=== PATIENT | male | born 1945 | race Caucasian/White ===

== ENCOUNTER 2018-02-17 09:17 | Inpatient (IN) | payer MEDICARE ==
[~2018-02-17] VITALS: Ht 165.1 cm; Wt 75.9 kg
[2018-02-17 09:52] LABS: BASOPHILS % 0.8 % (0.0-2.0); HEMOGLOBIN. 13.4 g/dL (14.0-18.0); LYMPHOCYTES % 23.8 % (20.0-50.0); MEAN CORPUSCULAR HEMOGLOBIN 30.1 pg (28.0-32.0); MEAN CORPUSCULAR VOLUME 85.6 fL (80.0-94.0); MEAN PLATELET VOLUME 7.5 fl (7.4-10.4); MONOCYTES % 5.3 % (2.0-8.0); NEUTROPHILS % 67.1 % (40.0-76.0); PLATELET 208 x1000/uL (130-400); RED BLOOD CELL COUNT 4.44 mill/uL (4.7-6.1); RED CELL DISTRIBUTION WIDTH 13.7 % (11.6-14.6)
[2018-02-17 09:58] LABS: INR 1.1; PROTHROMBIN TIME 11.2 sec (9.4-11.6)
[2018-02-17 10:01] LABS: CHLORIDE 105 mEq/L (98-107); ETHANOL BLOOD < 10 mg/dL
[2018-02-17] MEDS ORDERED: IOHEXOL-350 100 ML BOTTLE ONE (10:47)
[2018-02-17] MEDS ORDERED: ASPIRIN 325MG TABLET PO ONE (11:15)
[2018-02-17 11:32] LABS: CLARITY URINE CLEAR (CLEAR); COLOR URINE YELLOW (YELLOW); KETONES URINE NEGATIVE (NEGATIVE); LEUKOCYTE ESTERASE URINE NEGATIVE (NEGATIVE); NITRITE URINE NEGATIVE (NEGATIVE); OCCULT BLOOD URINE NEGATIVE (NEGATIVE); PROTEIN URINE NEGATIVE (NEGATIVE); SPECIFIC GRAVITY URINE 1.043 (1.005-1.030); UROBILINOGEN URINE 0.2 E.U./dL (0.2-1.0)
[2018-02-17 12:13] LABS: *AMPHETAMINES SCREEN URINE NEGATIVE (NEGATIVE); *BARBITURATES SCREEN URINE NEGATIVE (NEGATIVE); *BENZODIAZEPINES SCREEN URINE NEGATIVE (NEGATIVE); *COCAINE SCREEN URINE NEGATIVE (NEGATIVE); CANNABINOID URINE SCREEN NEGATIVE (NEGATIVE); METHADONE URINE SCREEN NEGATIVE (NEGATIVE); OPIATES URINE SCREEN NEGATIVE (NEGATIVE); PHENCYCLIDINE URINE SCREEN NEGATIVE (NEGATIVE)
[2018-02-17] MEDS: CLONIDINE 0.1MG TABLET PO PRN (16:43)
[2018-02-17 19:36] LABS: FOLIC ACID (FOLATE) SERUM 11.2 ng/mL (>5.38)
[2018-02-17] MEDS ORDERED: HYDROCODONE/ACETAMINOPHEN 5/325MG TABLET PO PRN (19:45)
[2018-02-17] MEDS ORDERED: NA PHOS,M-B/NA PHOS,DI-BA ENEMA 118ML PR PRN (20:00)
[2018-02-17] MEDS ORDERED: ACETAMINOPHEN 325MG TABLET PO PRN (20:00)
[2018-02-17] MEDS ORDERED: GUAIFENESIN 200MG/10ML SUGAR FREE UDC PO PRN (20:00)
[2018-02-17] MEDS ORDERED: LORAZEPAM 0.5MG TABLET PO PRN (20:00)
[2018-02-17] MEDS ORDERED: MAGNESIUM/ALUMINUM HYDROXIDE/SIMETHICONE 30ML UDC PO PRN (20:00)
[2018-02-17] MEDS ORDERED: HYDROCODONE/ACETAMINOPHEN 10/325MG TABLET PO PRN (20:00)
[2018-02-17] MEDS ORDERED: ACETAMINOPHEN 650MG/20.3ML UDC GT PRN (20:00)
[2018-02-17 20:27] VITALS: BP 142/52
[2018-02-17 20:28] VITALS: BP 142/52
[2018-02-17] MEDS ORDERED: DIPHENHYDRAMINE 50MG/ML VIAL IV PRN (20:30)
[2018-02-17] MEDS ORDERED: ACETAMINOPHEN 650MG SUPP PR PRN (20:30)
[2018-02-17 20:39] LABS: T4 FREE 1.12 ng/dL (0.76-1.46)
[2018-02-18] VITALS (7 sets, daily range): BP systolic 133–191; BP diastolic 46–91
[2018-02-18] MEDS: CLONIDINE 0.1MG TABLET PO PRN (04:15)
[2018-02-18] MEDS ORDERED: GLIP10TA10 PO (05:15)
[2018-02-18] MEDS ORDERED: ATOR20TA PO (05:15)
[2018-02-18] MEDS ORDERED: LOSA1TAB40 PO (05:15)
[2018-02-18] MEDS ORDERED: METF10002 PO (05:15)
[2018-02-18] MEDS ORDERED: FURO20TA4 PO (05:15)
[2018-02-18] MEDS ORDERED: GABA-531 PO (05:15)
[2018-02-18] MEDS ORDERED: ASPI-1159 PO (05:15)
[2018-02-18] MEDS ORDERED: SITA50TA3 PO (05:15)
[2018-02-18] MEDS ORDERED: AMLO10TA80 PO (05:15)
[2018-02-18 06:24] LABS: BASOPHILS % 0.9 % (0.0-2.0); EOSINOPHILS % 3.9 % (0.0-5.0); HEMATOCRIT. 35.6 % (42.0-52.0); HEMOGLOBIN. 12.3 g/dL (14.0-18.0); LYMPHOCYTES % 21.5 % (20.0-50.0); MEAN CORPUSCULAR HEMOGLOBIN 29.9 pg (28.0-32.0); MEAN CORPUSCULAR VOLUME 86.2 fL (80.0-94.0); MONOCYTES % 6.4 % (2.0-8.0); NEUTROPHILS % 67.3 % (40.0-76.0); PLATELET 181 x1000/uL (130-400); RED BLOOD CELL COUNT 4.13 mill/uL (4.7-6.1); RED CELL DISTRIBUTION WIDTH 13.6 % (11.6-14.6)
[2018-02-18 06:34] LABS: CHLORIDE 107 mEq/L (98-107)
[2018-02-18] MEDS ORDERED: METO-539 PO (06:45)
[2018-02-18] MEDS ORDERED: METOPROLOL TARTRATE 50MG TABLET PO SCH (12:00)
[2018-02-18] MEDS ORDERED: AMLODIPINE 10MG TABLET PO SCH (12:00)
[2018-02-18] MEDS: ATORVASTATIN CALCIUM 20MG TABLET PO SCH (14:18)
[2018-02-18] MEDS: ASPIRIN 81MG EC TABLET PO SCH (14:18)
[2018-02-18] MEDS: CLOPIDOGREL 75MG TABLET PO SCH (14:18)
[2018-02-18] MEDS: GABAPENTIN 300MG CAPSULE PO SCH (18:36)
[2018-02-18] MEDS: FUROSEMIDE 20MG TABLET PO SCH (18:38)
[2018-02-19] VITALS (14 sets, daily range): BP systolic 156–204; BP diastolic 69–95
[2018-02-19 07:28] LABS: INR 1.1; PROTHROMBIN TIME 11.4 sec (9.4-11.6)
[2018-02-19 07:30] LABS: HEMATOCRIT 38.1 % (42.0-52.0); HEMOGLOBIN 13.3 g/dL (14.0-18.0); MEAN CORPUSCULAR HEMOGLOBIN 29.6 pg (28.0-32.0); MEAN CORPUSCULAR VOLUME 84.6 fL (80.0-94.0); PLATELET 190 x1000/uL (130-400); RED BLOOD CELL COUNT 4.51 mill/uL (4.7-6.1); RED CELL DISTRIBUTION WIDTH 13.6 % (11.6-14.6)
[2018-02-19 08:03] LABS: CHLORIDE 106 mEq/L (98-107)
[2018-02-19 08:09] LABS: PHOSPHORUS 3.2 mg/dL (2.5-4.9)
[2018-02-19] MEDS: ATORVASTATIN CALCIUM 20MG TABLET PO SCH (09:45)
[2018-02-19] MEDS: FUROSEMIDE 20MG TABLET PO SCH (09:45)
[2018-02-19] MEDS: CLOPIDOGREL 75MG TABLET PO SCH (09:45)
[2018-02-19] MEDS: ASPIRIN 81MG EC TABLET PO SCH (09:45)
[2018-02-19] MEDS: GABAPENTIN 300MG CAPSULE PO SCH ×2 (09:45→17:29)
[2018-02-19] MEDS: GLIPIZIDE 10MG TABLET PO SCH (11:54)
[2018-02-20] VITALS (19 sets, daily range): BP systolic 171–212; BP diastolic 71–97
[2018-02-20 06:33] LABS: BASOPHILS % 0.6 % (0.0-2.0); HEMATOCRIT. 38.8 % (42.0-52.0); HEMOGLOBIN. 13.3 g/dL (14.0-18.0); LYMPHOCYTES % 20.2 % (20.0-50.0); MEAN CORPUSCULAR HEMOGLOBIN 29.4 pg (28.0-32.0); MEAN CORPUSCULAR VOLUME 85.6 fL (80.0-94.0); MEAN PLATELET VOLUME 7.8 fl (7.4-10.4); MONOCYTES % 7.1 % (2.0-8.0); NEUTROPHILS % 67.1 % (40.0-76.0); PLATELET 181 x1000/uL (130-400); RED BLOOD CELL COUNT 4.54 mill/uL (4.7-6.1); RED CELL DISTRIBUTION WIDTH 13.6 % (11.6-14.6)
[2018-02-20] MEDS ORDERED: LABETALOL HCL 20MG/4ML CARPUJECT IV PRN (08:15)
[2018-02-20] MEDS ORDERED: AMLODIPINE 5MG TABLET PO SCH (09:30)
[2018-02-20] MEDS: ASPIRIN 81MG EC TABLET PO SCH (10:33)
[2018-02-20] MEDS: GLIPIZIDE 10MG TABLET PO SCH (10:34)
[2018-02-20] MEDS: CLOPIDOGREL 75MG TABLET PO SCH (10:34)
[2018-02-20] MEDS: GABAPENTIN 300MG CAPSULE PO SCH ×2 (10:34→17:42)
[2018-02-20] MEDS: ATORVASTATIN CALCIUM 40MG TABLET PO SCH (10:34)
[2018-02-21] VITALS (27 sets, daily range): BP systolic 155–209; BP diastolic 66–99
[2018-02-21 06:48] LABS: BASOPHILS % 0.6 % (0.0-2.0); EOSINOPHILS % 5.4 % (0.0-5.0); HEMATOCRIT. 39.7 % (42.0-52.0); HEMOGLOBIN. 13.7 g/dL (14.0-18.0); LYMPHOCYTES % 18.6 % (20.0-50.0); MEAN CORPUSCULAR HEMOGLOBIN 29.6 pg (28.0-32.0); MEAN CORPUSCULAR VOLUME 85.6 fL (80.0-94.0); MEAN PLATELET VOLUME 7.7 fl (7.4-10.4); MONOCYTES % 6.6 % (2.0-8.0); NEUTROPHILS % 68.8 % (40.0-76.0); PLATELET 187 x1000/uL (130-400); RED BLOOD CELL COUNT 4.64 mill/uL (4.7-6.1); RED CELL DISTRIBUTION WIDTH 13.4 % (11.6-14.6)
[2018-02-21 07:14] LABS: PHOSPHORUS 2.9 mg/dL (2.5-4.9)
[2018-02-21] MEDS ORDERED: LOSARTAN POTASSIUM 25 MG TABLET PO SCH (09:00)
[2018-02-21] MEDS: AMLODIPINE 10MG TABLET PO SCH (09:11)
[2018-02-21] MEDS ORDERED: TETRACAINE/BENZOCAINE/BUTAMBEN 20 GM SPRAY MM ONE (12:45)
[2018-02-21] MEDS ORDERED: MIDAZOLAM HCL 5 MG/5 ML VIAL ONE (12:45)
[2018-02-21] MEDS ORDERED: FENTANYL CITRATE/PF 50MCG/ML 2ML VIAL ONE (12:46)
[2018-02-21] MEDS ORDERED: LIDOCAINE HCL 2% JELLY 5ML ONE (12:49)
[2018-02-21] MEDS: ATORVASTATIN CALCIUM 40MG TABLET PO SCH (14:45)
[2018-02-21] MEDS: GLIPIZIDE 10MG TABLET PO SCH (14:45)
[2018-02-21] MEDS: CLOPIDOGREL 75MG TABLET PO SCH (14:45)
[2018-02-21] MEDS: DOCUSATE SODIUM 100MG CAPSULE PO PRN (14:45)
[2018-02-21] MEDS: GABAPENTIN 300MG CAPSULE PO SCH ×2 (14:45→17:00)
[2018-02-21] MEDS: ASPIRIN 81MG EC TABLET PO SCH (14:45)
[2018-02-21] MEDS: LOSARTAN POTASSIUM 25 MG TABLET PO SCH ×2 (14:45→21:06)
[2018-02-22] VITALS (14 sets, daily range): BP systolic 158–197; BP diastolic 60–118
[2018-02-22 06:15] LABS: BASOPHILS % 0.6 % (0.0-2.0); EOSINOPHILS % 6.7 % (0.0-5.0); HEMATOCRIT. 37.9 % (42.0-52.0); HEMOGLOBIN. 13.3 g/dL (14.0-18.0); LYMPHOCYTES % 17.6 % (20.0-50.0); MEAN CORPUSCULAR HEMOGLOBIN 29.9 pg (28.0-32.0); MEAN CORPUSCULAR VOLUME 85.1 fL (80.0-94.0); MEAN PLATELET VOLUME 7.8 fl (7.4-10.4); MONOCYTES % 6.7 % (2.0-8.0); NEUTROPHILS % 68.4 % (40.0-76.0); PLATELET 187 x1000/uL (130-400); RED BLOOD CELL COUNT 4.45 mill/uL (4.7-6.1); RED CELL DISTRIBUTION WIDTH 13.7 % (11.6-14.6)
[2018-02-22 07:16] LABS: PHOSPHORUS 3.5 mg/dL (2.5-4.9)
[2018-02-22] MEDS: ATORVASTATIN CALCIUM 40MG TABLET PO SCH (08:57)
[2018-02-22] MEDS: GLIPIZIDE 10MG TABLET PO SCH (08:59)
[2018-02-22] MEDS: GABAPENTIN 300MG CAPSULE PO SCH ×2 (08:59→16:47)
[2018-02-22] MEDS: ASPIRIN 81MG EC TABLET PO SCH (08:59)
[2018-02-22] MEDS: AMLODIPINE 10MG TABLET PO SCH (08:59)
[2018-02-22] MEDS: CLOPIDOGREL 75MG TABLET PO SCH (09:02)
[2018-02-22] MEDS: LOSARTAN POTASSIUM 25 MG TABLET PO SCH (09:25)
[2018-02-22] MEDS: NIFEDIPINE XL 60MG TAB PO SCH (20:49)
[2018-02-22] MEDS: LOSARTAN POTASSIUM 50 MG TABLET PO SCH (21:08)
[2018-02-23] VITALS (11 sets, daily range): BP systolic 126–179; BP diastolic 53–113
[2018-02-23 05:49] LABS: BASOPHILS % 0.7 % (0.0-2.0); EOSINOPHILS % 7.2 % (0.0-5.0); HEMATOCRIT. 38.1 % (42.0-52.0); HEMOGLOBIN. 13.2 g/dL (14.0-18.0); LYMPHOCYTES % 17.3 % (20.0-50.0); MEAN CORPUSCULAR HEMOGLOBIN 29.5 pg (28.0-32.0); MEAN CORPUSCULAR VOLUME 85.5 fL (80.0-94.0); MEAN PLATELET VOLUME 7.9 fl (7.4-10.4); MONOCYTES % 6.6 % (2.0-8.0); NEUTROPHILS % 68.2 % (40.0-76.0); PLATELET 188 x1000/uL (130-400); RED BLOOD CELL COUNT 4.45 mill/uL (4.7-6.1); RED CELL DISTRIBUTION WIDTH 13.8 % (11.6-14.6)
[2018-02-23] MEDS: GABAPENTIN 300MG CAPSULE PO SCH ×2 (08:38→16:53)
[2018-02-23] MEDS: ATORVASTATIN CALCIUM 40MG TABLET PO SCH (08:39)
[2018-02-23] MEDS: NIFEDIPINE XL 60MG TAB PO SCH ×2 (08:39→20:09)
[2018-02-23] MEDS: LOSARTAN POTASSIUM 50 MG TABLET PO SCH ×2 (08:39→20:10)
[2018-02-23] MEDS: CLOPIDOGREL 75MG TABLET PO SCH (08:39)
[2018-02-23] MEDS: GLIPIZIDE 10MG TABLET PO SCH (08:39)
[2018-02-23] MEDS: ASPIRIN 81MG EC TABLET PO SCH (08:39)
[2018-02-23] MEDS ORDERED: HYDRALAZINE HCL 25MG TABLET PO SCH (10:15)
[2018-02-23] MEDS: HYDRALAZINE HCL 25MG TABLET PO SCH (20:09)
[2018-02-24] VITALS (11 sets, daily range): BP systolic 105–149; BP diastolic 41–90
[2018-02-24 06:50] LABS: BASOPHILS % 0.7 % (0.0-2.0); EOSINOPHILS % 6.8 % (0.0-5.0); HEMATOCRIT. 37.6 % (42.0-52.0); HEMOGLOBIN. 13.3 g/dL (14.0-18.0); LYMPHOCYTES % 20.1 % (20.0-50.0); MEAN CORPUSCULAR HEMOGLOBIN 30.3 pg (28.0-32.0); MEAN CORPUSCULAR VOLUME 85.8 fL (80.0-94.0); MEAN PLATELET VOLUME 7.9 fl (7.4-10.4); MONOCYTES % 6.5 % (2.0-8.0); NEUTROPHILS % 65.9 % (40.0-76.0); PLATELET 185 x1000/uL (130-400); RED BLOOD CELL COUNT 4.38 mill/uL (4.7-6.1); RED CELL DISTRIBUTION WIDTH 14.1 % (11.6-14.6)
[2018-02-24] MEDS: ATORVASTATIN CALCIUM 40MG TABLET PO SCH (08:18)
[2018-02-24] MEDS: NIFEDIPINE XL 60MG TAB PO SCH ×2 (08:19→20:04)
[2018-02-24] MEDS: LOSARTAN POTASSIUM 50 MG TABLET PO SCH ×2 (08:19→20:04)
[2018-02-24] MEDS: GABAPENTIN 300MG CAPSULE PO SCH ×2 (08:19→16:55)
[2018-02-24] MEDS: ASPIRIN 81MG EC TABLET PO SCH (08:19)
[2018-02-24] MEDS: GLIPIZIDE 10MG TABLET PO SCH (08:19)
[2018-02-24] MEDS: CLOPIDOGREL 75MG TABLET PO SCH (08:19)
[2018-02-24 08:25] LABS: PHOSPHORUS 4.1 mg/dL (2.5-4.9)
[2018-02-24] MEDS: HYDRALAZINE HCL 25MG TABLET PO SCH ×2 (08:26→20:05)
[2018-02-25] VITALS (7 sets, daily range): BP systolic 111–148; BP diastolic 52–83
[2018-02-25 07:15] LABS: BASOPHILS % 0.5 % (0.0-2.0); EOSINOPHILS % 4.7 % (0.0-5.0); HEMATOCRIT. 36.1 % (42.0-52.0); HEMOGLOBIN. 12.6 g/dL (14.0-18.0); LYMPHOCYTES % 14.4 % (20.0-50.0); MEAN CORPUSCULAR HEMOGLOBIN 29.6 pg (28.0-32.0); MEAN CORPUSCULAR VOLUME 84.8 fL (80.0-94.0); MEAN PLATELET VOLUME 8.1 fl (7.4-10.4); MONOCYTES % 6.1 % (2.0-8.0); NEUTROPHILS % 74.3 % (40.0-76.0); PLATELET 186 x1000/uL (130-400); RED BLOOD CELL COUNT 4.25 mill/uL (4.7-6.1); RED CELL DISTRIBUTION WIDTH 13.6 % (11.6-14.6)
[2018-02-25 07:31] LABS: PHOSPHORUS 5.1 mg/dL (2.5-4.9)
[2018-02-25] MEDS: ATORVASTATIN CALCIUM 40MG TABLET PO SCH (08:25)
[2018-02-25] MEDS: LOSARTAN POTASSIUM 50 MG TABLET PO SCH ×2 (08:26→21:03)
[2018-02-25] MEDS: HYDRALAZINE HCL 25MG TABLET PO SCH (08:26)
[2018-02-25] MEDS: ASPIRIN 81MG EC TABLET PO SCH (08:27)
[2018-02-25] MEDS: NIFEDIPINE XL 60MG TAB PO SCH ×2 (08:27→21:03)
[2018-02-25] MEDS: CLOPIDOGREL 75MG TABLET PO SCH (08:28)
[2018-02-25] MEDS: GLIPIZIDE 10MG TABLET PO SCH (08:29)
[2018-02-25] MEDS: GABAPENTIN 300MG CAPSULE PO SCH ×2 (08:29→16:19)
[2018-02-25] MEDS: SODIUM CHLORIDE 0.9% 1,000 ML IV SCH (16:19)
[2018-02-25] MEDS: DOCUSATE SODIUM 100MG CAPSULE PO PRN (16:19)
[2018-02-26] VITALS (12 sets, daily range): BP systolic 112–162; BP diastolic 61–87
[2018-02-26] MEDS: SODIUM CHLORIDE 0.9% 1,000 ML IV SCH ×2 (00:03→08:48)
[2018-02-26 06:10] LABS: BASOPHILS % 0.8 % (0.0-2.0); EOSINOPHILS % 7.6 % (0.0-5.0); HEMATOCRIT. 35.2 % (42.0-52.0); HEMOGLOBIN. 12.4 g/dL (14.0-18.0); LYMPHOCYTES % 25.8 % (20.0-50.0); MEAN CORPUSCULAR HEMOGLOBIN 30.1 pg (28.0-32.0); MEAN CORPUSCULAR VOLUME 85.2 fL (80.0-94.0); MONOCYTES % 7.5 % (2.0-8.0); NEUTROPHILS % 58.3 % (40.0-76.0); PLATELET 172 x1000/uL (130-400); RED BLOOD CELL COUNT 4.13 mill/uL (4.7-6.1); RED CELL DISTRIBUTION WIDTH 13.5 % (11.6-14.6)
[2018-02-26 06:55] LABS: PHOSPHORUS 4.8 mg/dL (2.5-4.9)
[2018-02-26] MEDS: CLOPIDOGREL 75MG TABLET PO SCH (08:47)
[2018-02-26] MEDS: LOSARTAN POTASSIUM 50 MG TABLET PO SCH (08:47)
[2018-02-26] MEDS: ASPIRIN 81MG EC TABLET PO SCH (08:47)
[2018-02-26] MEDS: GABAPENTIN 300MG CAPSULE PO SCH ×2 (08:47→17:22)
[2018-02-26] MEDS: GLIPIZIDE 10MG TABLET PO SCH (08:47)
[2018-02-26] MEDS: ATORVASTATIN CALCIUM 40MG TABLET PO SCH (08:47)
[2018-02-26] MEDS: NIFEDIPINE XL 60MG TAB PO SCH (08:47)
== END 2018-02-26 20:00 | DRG 64 ==
LOC: ER 09:17 → 6WST 09:44 → EDBEDREQSVC 12:04 → EDBEDREQ 12:04 → ENRESERV 14:17 → 6WST 17:37 → 5EST 02-18 23:06
PROVIDERS: ADMIT Internal Medicine; ATTEND Internal Medicine
PROC: 4A00X4Z Measurement of Central Nervous Electrical Activity, External Approach (ICD-10-PCS; principal; 2018-02-18)
DX: I63.9 Cerebral infarction, unspecified (principal); N17.0 Acute kidney failure with tubular necrosis; G92 Toxic encephalopathy; E44.0 Moderate protein-calorie malnutrition; R13.10 Dysphagia, unspecified; R41.4 Neurologic neglect syndrome; G81.94 Hemiplegia, unspecified affecting left nondominant side; E11.22 Type 2 diabetes mellitus with diabetic chronic kidney disease; H53.469 Homonymous bilateral field defects, unspecified side; R47.01 Aphasia; N18.9 Chronic kidney disease, unspecified; I12.9 Hypertensive chronic kidney disease with stage 1 through stage 4 chronic kidney disease, or unspecified chronic kidney disease; R26.9 Unspecified abnormalities of gait and mobility; I34.0 Nonrheumatic mitral (valve) insufficiency; D64.9 Anemia, unspecified; E78.5 Hyperlipidemia, unspecified; Z79.82 Long term (current) use of aspirin; Z79.84 Long term (current) use of oral hypoglycemic drugs; Z79.899 Other long term (current) drug therapy; Z82.3 Family history of stroke; Z82.49 Family history of ischemic heart disease and other diseases of the circulatory system; Z83.3 Family history of diabetes mellitus; Z86.73 Personal history of transient ischemic attack (TIA), and cerebral infarction without residual deficits; Z68.27 Body mass index [BMI] 27.0-27.9, adult
CPT/HCPCS: 36415; 70450; 70496; 70498; 70551; 71045; 76770; 80048; 80053; 80061; 80305; 81003; 82607; 82746; 82962; 83036; 83735; 83880; 84100; 84439; 84443; 84481; 84484; 85025; 85027; 85610; 92610; 93005; 93306; 93970; 97112; 97116; 97163; 97167; 97530; 99291; C1893; G0482; J2250; J3010; J7030; J7050; Q9967